=== PATIENT | male | born 1995 | race Caucasian/White ===

== ENCOUNTER 2020-09-29 12:59 | Emergency (ER) | payer OTHER ==
[~2020-09-29] VITALS: Ht 188 cm; Wt 88.5 kg
[2020-09-29 13:18] VITALS: BP 138/82
--- NOTE | 2020-09-29 14:58 | NUR ---
Patient discharged to home in stable condition. Written and verbal after care instructions given. Patient verbalizes understanding of instruction.
== END 2020-09-29 15:00 | disposition home or self-care (01) ==
LOC: ER 13:02
DX: H00.014 Hordeolum externum left upper eyelid (principal); F17.200 Nicotine dependence, unspecified, uncomplicated

== ENCOUNTER 2020-10-09 21:53 | Emergency (ER) | payer OTHER ==
[~2020-10-09] VITALS: Ht 188 cm; Wt 84.4 kg
[2020-10-09 22:07] VITALS: BP 127/73
[2020-10-09] MEDS ORDERED: HYDROCODONE/APAP 5/325MG TABLET ONE (22:58)
[2020-10-09] MEDS ORDERED: HYDROCODONE/APAP 5/325MG TABLET PO ONE (23:00)
--- NOTE | 2020-10-09 23:26 | NUR ---
Patient discharged to home in stable condition. Written and verbal after care instructions given. Patient verbalizes understanding of instruction.Pt ambulatory with a steady gait
== END 2020-10-10 00:10 | disposition home or self-care (01) ==
LOC: ER 21:56
DX: S62.396A Other fracture of fifth metacarpal bone, right hand, initial encounter for closed fracture (principal); W22.8XXA Striking against or struck by other objects, initial encounter; Y93.89 Activity, other specified; Y92.89 Other specified places as the place of occurrence of the external cause; Y99.8 Other external cause status
CPT/HCPCS: 73130-TC